=== PATIENT | male | born 1945 | race American Indian/Alaskan Native ===

== ENCOUNTER 2018-01-19 12:33 | Day surgery (SDC) | payer MEDICARE ==
[~2018-01-19 12:33] MED LIST: ANCEF/STERILE WATER 2 GM/20 ML IV NR
[2018-01-19] MEDS ORDERED: NACL 0.9% 1000 ML 1,000 ML IV SCH (14:00)
[2018-01-19] MEDS ORDERED: NACL 0.9% 1000 ML 0 ML ONE (14:01)
[2018-01-19] MEDS ORDERED: SUBLIMAZE ONE ×2 (14:10→15:52)
[2018-01-19] MEDS ORDERED: XYLOCAINE MPF 2% ONE (14:10)
[2018-01-19] MEDS ORDERED: ZOFRAN ONE (14:10)
[2018-01-19] MEDS ORDERED: DIPRIVAN 10 MG/ML IV ONE (14:10)
[2018-01-19] MEDS ORDERED: NACL 0.9% 1000 ML 1,000 ML ONE (14:28)
[2018-01-19 14:54] LABS: Basophils % (Auto) 1.3 % (0.0-1.8); Eosinophils # (Auto) 0.1 K/mm3 (0.0-0.4); Eosinophils % (Auto) 2.1 % (0.0-4.3); Hematocrit 40.4 % (35.5-45.6); Hemoglobin 13.2 gm/dl (11.8-15.2); Lymphocytes % (Auto) 34.9 % (13.4-35.0); Mean Corpuscular HGB Conc 33 % (32-34); Mean Corpuscular Hemoglobin 30 pg (28-32); Mean Corpuscular Volume 92 fl (84-94); Monocytes # (Auto) 0.4 K/mm3 (0.0-0.8); Monocytes % (Auto) 11.9 % (0.0-7.3); Platelet Count 196 K/mm3 (140-440); Red Blood Count 4.41 M/mm3 (3.65-5.03); Red Cell Distribution Width 14.3 % (13.2-15.2)
[2018-01-19 15:16] LABS: BUN/Creatinine Ratio 18; Blood Urea Nitrogen 16 mg/dL (9-20); Calcium 9.6 mg/dL (8.4-10.2); Hemolysis Index 4
[2018-01-19] MEDS ORDERED: ePHEDrine 50 MG/5 ML-0.9% NACL IV ONE (15:17)
[2018-01-19] MEDS ORDERED: NACL 0.9% IR ONE (15:35)
[2018-01-19] MEDS ORDERED: MARCAINE 0.5% INFILTRATI ONE (16:00)
[2018-01-19] MEDS ORDERED: MARCAINE 0.5% 30 ML INFILTRATI ONE (16:06)
--- NOTE | 2018-01-19 16:24 | Short Stay Summary ---
Short Stay Documentation Date of service: 01/19/18 - History H&P: obtained from office - Allergies and Medications Current Medications: Allergies No Known Allergies Allergy (Verified 10/24/14 15:43) Home Medications Medication Instructions Recorded Confirmed Last Taken Type Aspirin [Aspirin BABY CHEW TAB] 1 tab PO DAILY 10/24/14 01/19/18 01/17/18 09:00 History Losartan [Cozaar] 1 tab PO DAILY 10/24/14 01/19/18 01/18/18 09:00 History Metformin HCl [metFORMIN ER] 500 mg PO BID 10/24/14 01/19/18 01/18/18 20:00 History Tamsulosin [Flomax] 1 cap PO DAILY 10/24/14 01/19/18 01/18/18 09:00 History Repaglinide 0.5 mg PO PRN 09/10/17 09/10/17 01/19/18 08:30 History Carbidopa/Levodopa 25-100 [Sinemet 2.5 each PO Q8HR #30 tablet 09/13/1701/19/18 08:30 Rx 25/100] Diazepam [Valium] 5 mg PO DAILY PRN #10 tablet 09/13/17 01/19/18 Unknown Rx Active Medications Cefazolin Sodium (Ancef/Sterile Water 2 Gm/20 Ml) 2 gm IV PREOP NR Stop: 01/19/18 23:59 Sodium Chloride (Nacl 0.9% 1000 Ml) 1,000 mls @ 75 mls/hr IV DIRECT SHYANN Last Admin: 01/19/18 14:20 Dose: 75 mls/hr - Brief post op/procedure progress note Date of procedure: 01/19/18 Pre-op diagnosis: rt testes mass Post-op diagnosis: same Procedure: rt radical orchiectomy Anesthesia: SANTOA Surgeon: IAN MONGE Estimated blood loss: minimal Pathology: list (testes---rt) Specimen disposition: to lab Condition: stable - Hospital course Hospital course: donna on chart - Disposition Condition at discharge: Stable Disposition: DC-01 TO HOME OR SELFCARE Short Stay Discharge Plan Follow up with: ARLETTE KELLER MD [Primary Care Provider] - 7 Days
--- NOTE | 2018-01-19 16:41 | Operative Report ---
PREOPERATIVE DIAGNOSIS: Right testis mass. POSTOPERATIVE DIAGNOSIS: Right testis mass. PROCEDURE: Right radical orchiectomy. SURGEON: Flaquito Giraldo MD ANESTHESIA: General. ESTIMATED BLOOD LOSS: Minimal. FLUIDS: Crystalloid. COMPLICATIONS: No complications. INDICATIONS: This patient is a 72-year-old gentleman seen in the office with a large 10 cm right scrotal mass. Ultrasound suggested it was extratesticular, but it was hard to differentiate on exam. Tumor markers were drawn, but are pending. DESCRIPTION OF PROCEDURE: The patient was taken to the operative suite, placed in a supine position. After adequate general anesthesia. He was prepped and draped in a sterile fashion. Right inguinal incision was made with a Bovie. Sharp dissection was taken down to the external oblique fascia, which was opened. The ilioinguinal nerve could not be appreciated. The spermatic cord was identified, dissected to the internal ring. A Greenwood drain was used to secure the cord. Attempts to deliver the testicle out of the incision, which was unsuccessful. Therefore, I had to extend the incision slightly to allow removal. There is a large mass. Nabila was clamped at the internal ring. 0 silk suture ligature was used to tie it. Adequate hemostasis was achieved. No hernia defect could be appreciated. 2-0 Vicryl in a running fashion for the external oblique fascia, 2-0 Vicryl in a running fashion subcutaneous tissue, anya on the skin. 0.25% Marcaine was injected in the skin as well. A total of 20 mL. The patient tolerated the procedure well. Dressing was placed. He was extubated and taken to recovery room. He will go home on [facility]. JOB# [id number] [facility]
[2018-01-19 17:14] VITALS: BP 153/78
== END 2018-01-19 12:34 | disposition home or self-care (01) ==
LOC: OR 12:33
PROVIDERS: ATTEND Urology
DX: N44.2 Benign cyst of testis (principal); N45.2 Orchitis; N44.8 Other noninflammatory disorders of the testis; N40.0 Benign prostatic hyperplasia without lower urinary tract symptoms; Z79.82 Long term (current) use of aspirin; Z79.84 Long term (current) use of oral hypoglycemic drugs; Z98.890 Other specified postprocedural states
CPT/HCPCS: 36415; 54530; 80048; 82962; 85025; 88309; 88331; J0690; J2405; J2704; J3010; J7030

== ENCOUNTER 2018-11-18 13:12 | Outpatient (CLI) | payer MEDICARE | END 2018-11-18 13:13 | disposition home or self-care (01) | LOC: CARD 13:12 | PROVIDERS: ATTEND Internal Medicine | DX: R94.31 Abnormal electrocardiogram [ECG] [EKG] (principal); R07.9 Chest pain, unspecified; I10 Essential (primary) hypertension; E11.9 Type 2 diabetes mellitus without complications; E78.00 Pure hypercholesterolemia, unspecified | CPT/HCPCS: 93005; 93010 ==

== ENCOUNTER 2019-10-05 08:14 | Emergency (ER) | payer MEDICARE ==
[2019-10-05] MEDS ORDERED: TETANUS,DIPH,PERTUSS(ACELL) VACCINE 0.5 ML SYRINGE IM ONE (08:35)
--- NOTE | 2019-10-05 09:00 | Emergency Department Report ---
HPI - General Chief Complaint: Fall Time Seen by Provider: 10/05/19 08:29 - HPI HPI: Room 2 The patient is a 74-year-old male present with a chief complaint of fall. The patient states last night at approximately midnight he got entangled on something on the floor and fell to the ground. Patient states he struck his head on the floor but did not lose consciousness. Patient denies nausea vomiting or pain currently. Patient sustained laceration to his forehead and states he does not recall the last time he had a tetanus shot ED Past Medical Hx - Past Medical History Previous Medical History?: Yes Hx Hypertension: Yes Hx Diabetes: Yes Hx Asthma: No Hx HIV: No Additional medical history: Parkinson's Ds, Nystagmus, - Surgical History Past Surgical History?: Yes Additional Surgical History: Bilateral Hernia Repair, orchiectomy - Family History Family history: no significant - Social History Smoking Status: Never Smoker Substance Use Type: None - Medications Home Medications: Home Medications Medication Instructions Recorded Confirmed Last Taken Type Aspirin [Aspirin BABY CHEW TAB] 1 tab PO DAILY 10/24/14 09/18/18 09/17/18 History Losartan [Cozaar] 2 tab PO DAILY 10/24/14 09/18/18 09/17/18 History Metformin HCl [metFORMIN ER] 500 mg PO BID 10/24/14 09/18/18 09/17/18 History Tamsulosin [Flomax] 2 cap PO DAILY 10/24/14 09/18/18 09/17/18 History Repaglinide 0.5 mg PO PRN 09/10/17 09/18/18 01/19/18 08:30 History Carbidopa/Levodopa 25-100 [Sinemet 2.5 each PO Q8HR #30 tablet 09/13/17 09/18/18 1 Day Ago Rx 25/100] ~09/17/18 Diazepam [Valium] 5 mg PO DAILY PRN #10 tablet 09/13/17 09/18/18 Unknown Rx Methimazole 10 mg PO DAILY 09/18/18 09/18/18 09/17/18 History Mirtazapine 15 mg PO QHS 09/18/18 09/18/18 09/16/18 History Sinemet ER 50/200 1 mg PO QHS 09/18/18 09/18/18 09/17/18 History rOPINIRole 1 mg PO TID MDD 09/18/18 09/18/18 09/17/18 History Oxybutynin Xl [Ditropan Xl] 10 mg PO QDAY #60 tablet 09/20/18 Unknown Rx cephALEXin [Keflex] 500 mg PO Q8HR #21 cap 10/05/19 Unknown Rx traMADoL [Ultram] 50 mg PO Q6HR PRN #10 tablet 10/05/19 Unknown Rx ED Review of Systems ROS: Stated complaint: FALL/HEAD LACERATION Other details as noted in HPI Constitutional: no symptoms reported Eyes: denies: eye pain ENT: denies: throat pain Respiratory: no symptoms reported Cardiovascular: denies: chest pain Endocrine: no symptoms reported Gastrointestinal: denies: abdominal pain Genitourinary: denies: dysuria Musculoskeletal: denies: back pain Neurological: denies: headache Physical Exam - Physical Exam Vital Signs: Vital Signs 10/05/19 08:26 Temperature 97.8 F Pulse Rate 67 Respiratory 16 Rate Blood Pressure 163/65 [Left] O2 Sat by Pulse 100 Oximetry Physical Exam: GENERAL: The patient is well-developed well-nourished male lying on stretcher not appear to be in acute distress. [] HEENT: Normocephalic. 2 cm laceration to the mid forehead. Hemostatic. Extraocular motions are intact. Patient has moist mucous membranes. NECK: Supple. No meningitic signs are noted. There is no adenopathy noted. CHEST/LUNGS: There is no respiratory distress HEART/CARDIOVASCULAR: Regular. There is no tachycardia. There is no gallop rub or murmur. ABDOMEN: Abdomen is soft, nontender. Patient has normal bowel sounds. There is no abdominal distention. SKIN: There is no rash. There is no edema. There is no diaphoresis. NEURO: The patient is awake, alert, and oriented. The patient is cooperative. The patient has no focal neurologic deficits. The patient has normal speech. Cranial nerves II through XII grossly intact, no drift MUSCULOSKELETAL: There is no evidence of acute injury. ED Course Vital Signs 10/05/19 08:26 Temperature 97.8 F Pulse Rate 67 Respiratory 16 Rate Blood Pressure 163/65 [Left] O2 Sat by Pulse 100 Oximetry - Laceration /Wound Repair Head Wound Location: head Wound Length (cm): 3 Wound's Depth, Shape: linear Wound Explored: clean Betadine Prep?: Yes Anesthesia: Lidocaine w/ Epi Volume Anesthetic (ccs): 5 Wound Repaired With: sutures Suture Size/Type: 5:0, nylon Number of Sutures: 4 Layer Closure?: No Sterile Dressing Applied?: Yes ED Medical Decision Making - EKG Data -: EKG Interpreted by Me EKG shows normal: sinus rhythm Rate: normal - EKG Data When compared to previous EKG there are: previous EKG unavailable Interpretation: other (No ischemic changes seen) - Radiology Data Radiology results: report reviewed (CT head, CT facial bones, CT cervical spine), image reviewed (CT head, CT facial bones, CT cervical spine) [place] [id number] Cat Scan Report Signed Patient: PHOEBE DUGGAN MR# : [id number] : 1945 Acct:[id number] Age/Sex: 74 / M ADM Date: 10/05/19 Loc: ED Attending Dr: Ordering Physician: LEONARDO CARRERO MD Date of Service: 10/05/19 Procedure(s): CT head/brain wo con Accession Number(s): [id number] cc: LEONARDO CARRERO MD CT head without contrast HISTORY: Head injury after trip and fall. TECHNIQUE: Axial imaging performed from the skull apex through the skull base without the use of contrast. All CT scans at this location are performed using CT dose reduction for ALARA by means of automated exposure control. COMPARISON: None FINDINGS: Parenchyma: No acute intracranial hemorrhage or parenchymal abnormality. Ventricles: There is mild diffuse brain atrophy with commensurate ventricular enlargement which is likely age appropriate. Soft tissues: Small frontal scalp laceration with small hematoma. The orbits appear normal. Bones: No acute osseous abnormality. Sinuses: Sinuses and mastoid air cells are clear. IMPRESSION: Frontal scalp laceration with small hematoma. No acute intracranial abnormality. Signer Name: Jorgito Daigle MD Signed: 10/05/2019 9:46 AM Workstation Name: [id number] Transcribed By: EVE Dictated By: Jorgito Daigle MD Electronically Authenticated By: Jorgito Daigle MD Signed Date/Time: 10/05/19945 DD/ 9 TD/TT: [address] [address] Cat Scan Report Signed Patient: PHOEBE DUGGAN MR# : [id number] : 1945 Acct:[id number] Age/Sex: 74 / M ADM Date: 10/05/19 Loc: ED Attending Dr: Ordering Physician: LEONARDO CARRERO MD Date of Service: 10/05/19 Procedure(s): CT facial bones wo con Accession Number(s): [id number] cc: LEONARDO CARRERO MD CT maxillofacial without contrast INDICATION : Head injury after trip and fall. TECHNIQUE: Axial imaging performed through the face with reconstructed images also reviewed. All CT scans at this location are performed using CT dose reduction for ALARA by means of automated exp osure control. COMPARISON: CT head from today FINDINGS: There is a small midline frontal scalp laceration with small hematoma, all of which was better seen on the CT head from today. No acute fracture or malalignment identified. Mild mucosal thickening seen in the maxillary sinuses and several ethmoid air cells. Remaining sinuses and mastoid air cells are clear. Small dermal calcifications are seen over the cheeks. Orbits are normal. IMPRESSION: Small frontal scalp injury was better seen on the CT head from today. Otherwise unremarkable exam. Signer Name: Jorgito Daigle MD Signed: 10/05/2019 10:18 AM Workstation Name: [id number] Transcribed By: JW Dictated By: Jorgito Daigle MD Electronically Authenticated By: Jorgito Daigle MD Signed Date/Time: 10/05/19 1018 DD/ 1016 TD/TT: [address] [address] Cat Scan Report Signed Patient: PHOEBE DUGGAN MR# : [id number] : 1945 Acct:[id number] Age/Sex: 74 / M ADM Date: 10/05/19 Loc: ED Attending Dr: Ordering Physician: LEONARDO CARRERO MD Date of Service: 10/05/19 Procedure(s): CT cervical spine wo con Accession Number(s): [id number] cc: LEONARDO CARRERO MD CT cervical spine spine without contrast INDICATION: Head injury after trip and fall. TECHNIQUE: Axial imaging performed through the cervical spine without the use of contrast. Sagittal and coronal reconstructed images were also reviewed. All CT scans at this location are p erformed using CT dose reduction for ALARA by means of automated exposure control. COMPARISON: None FINDINGS: Alignment: Spinal alignment is normal. Bones: There is no acute osseous abnormality. Moderate multilevel discogenic DJD is present. Soft tissues: No acute or significant incidental soft tissue abnormality. IMPRESSION: No acute abnormality. Signer Name: Jorgito Daigle MD Signed: 10/05/2019 9:48 AM Workstation Name: [id number] Transcribed By: JW Dictated By: Jorgito Daigle MD Electronically Authenticated By: Jorgito Daigle MD Signed Date/Time: 10/05/19947 DD/ 5 TD/TT: - Differential Diagnosis Closed head injury, intracranial hemorrhage, Critical care attestation.: If time is entered above; I have spent that time in minutes in the direct care of this critically ill patient, excluding procedure time. ED Disposition Clinical Impression: Closed head injury, Forehead laceration Disposition: DC-01 TO HOME OR SELFCARE Is pt being admited?: No Does the pt Need Aspirin: No Condition: Stable Instructions: Minor Head Injury (ED), Suture Care (ED), Laceration (ED) Additional Instructions: Your sutures need to be removed in 3-5 days. Return to the emergency department should you develop worsening symptoms, inability to tolerate food or liquids, high fever or any other concerns Prescriptions: cephALEXin [Keflex] 500 mg PO Q8HR #21 cap traMADoL [Ultram] 50 mg PO Q6HR PRN #10 tablet PRN Reason: Pain Referrals: PRIMARY CARE, [Primary Care Provider] - 3-5 Days Time of Disposition: 11:19
--- NOTE | 2019-10-05 09:50 | Cat Scan Report ---
CT head without contrast HISTORY: Head injury after trip and fall. TECHNIQUE: Axial imaging performed from the skull apex through the skull base without the use of con trast. All CT scans at this location are performed using CT dose reduction for ALARA by means of aut omated exposure control. COMPARISON: None FINDINGS: Parenchyma: No acute intracranial hemorrhage or parenchymal abnormality. Ventricles: There is mild diffuse brain atrophy with commensurate ventricular enlargement which is l ikely age appropriate. Soft tissues: Small frontal scalp laceration with small hematoma. The orbits appear normal. Bones: No acute osseous abnormality. Sinuses: Sinuses and mastoid air cells are clear. IMPRESSION: Frontal scalp laceration with small hematoma. No acute intracranial abnormality. Signer Name: Jorgito Daigle MD Signed: 10/05/2019 9:46 AM Workstation Name: [id number]
--- NOTE | 2019-10-05 09:52 | Cat Scan Report ---
CT cervical spine spine without contrast INDICATION: Head injury after trip and fall. TECHNIQUE: Axial imaging performed through the cervical spine without the use of contrast. Sagittal and coronal reconstructed images were also reviewed. All CT scans at this location are performed us ing CT dose reduction for ALARA by means of automated exposure control. COMPARISON: None FINDINGS: Alignment: Spinal alignment is normal. Bones: There is no acute osseous abnormality. Moderate multilevel discogenic DJD is present. Soft tissues: No acute or significant incidental soft tissue abnormality. IMPRESSION: No acute abnormality. Signer Name: Jorgito Daigle MD Signed: 10/05/2019 9:48 AM Workstation Name: [id number]
--- NOTE | 2019-10-05 10:23 | Cat Scan Report ---
CT maxillofacial without contrast INDICATION : Head injury after trip and fall. TECHNIQUE: Axial imaging performed through the face with reconstructed images also reviewed. All CT scans at this location are performed using CT dose reduction for ALARA by means of automated exposur e control. COMPARISON: CT head from today FINDINGS: There is a small midline frontal scalp laceration with small hematoma, all of which was be tter seen on the CT head from today. No acute fracture or malalignment identified. Mild mucosal thick ening seen in the maxillary sinuses and several ethmoid air cells. Remaining sinuses and mastoid air cells are clear. Small dermal calcifications are seen over the cheeks. Orbits are normal. IMPRESSION: Small frontal scalp injury was better seen on the CT head from today. Otherwise unremarka ble exam. Signer Name: Jorgito Daigle MD Signed: 10/05/2019 10:18 AM Workstation Name: [id number]
[2019-10-05] MEDS ORDERED: LIDOCAINE 1%/EPINEPHRINE 1:100,000 VIAL (20 ML) INFILTRATI ONE (10:31)
[2019-10-05] MEDS ORDERED: SODIUM CHLORIDE 0.9% IRR 500 ML BOTTLE IR ONE (10:32)
[2019-10-05] MEDS ORDERED: BACITRACIN/POLYMYXIN B OINT 28.35 GM TP ONE (11:18)
[2019-10-05 11:48] VITALS: BP 108/63
== END 2019-10-05 12:02 | disposition home or self-care (01) ==
LOC: ED 08:14
DX: S01.91XA Laceration without foreign body of unspecified part of head, initial encounter (principal); S09.90XA Unspecified injury of head, initial encounter; I10 Essential (primary) hypertension; E11.9 Type 2 diabetes mellitus without complications; Z98.890 Other specified postprocedural states; Z79.899 Other long term (current) drug therapy; W18.39XA Other fall on same level, initial encounter; Y93.89 Activity, other specified; Y92.89 Other specified places as the place of occurrence of the external cause; Y99.8 Other external cause status
CPT/HCPCS: 70450; 70486; 72125; 90471; 90715; 93005; 93010

== ENCOUNTER 2019-10-13 13:21 | Emergency (ER) | payer MEDICARE ==
--- NOTE | 2019-10-13 13:38 | Emergency Department Report ---
Suture/Staple Removal - HPI Chief Complaint: Laceration/Recheck/Suture Stated Complaint: REMOVAL OF STICHES Time Seen by Provider: 10/13/19 13:28 When Sutures or Dixon Placed: 8-10 Days Ago Wound Location: forehead ED Review of Systems ROS: Stated complaint: REMOVAL OF STICHES Other details as noted in HPI Constitutional: denies: chills, fever Respiratory: denies: cough, shortness of breath, wheezing Cardiovascular: denies: chest pain, palpitations Gastrointestinal: denies: abdominal pain, nausea, diarrhea Skin: lesions (sutures to forehead). denies: rash Neurological: denies: headache, weakness, paresthesias Psychiatric: denies: anxiety, depression ED Past Medical Hx - Past Medical History Hx Hypertension: Yes Hx Diabetes: Yes Hx Asthma: No Hx HIV: No Additional medical history: Parkinson's Ds, Nystagmus, - Surgical History Additional Surgical History: Bilateral Hernia Repair, orchiectomy - Social History Smoking Status: Never Smoker Substance Use Type: None - Medications Home Medications: Home Medications Medication Instructions Recorded Confirmed Last Taken Type Aspirin [Aspirin BABY CHEW TAB] 1 tab PO DAILY 10/24/14 09/18/18 09/17/18 History Losartan [Cozaar] 2 tab PO DAILY 10/24/14 09/18/18 09/17/18 History Metformin HCl [metFORMIN ER] 500 mg PO BID 10/24/14 09/18/18 09/17/18 History Tamsulosin [Flomax] 2 cap PO DAILY 10/24/14 09/18/18 09/17/18 History Repaglinide 0.5 mg PO PRN 09/10/17 09/18/18 01/19/18 08:30 History Carbidopa/Levodopa 25-100 [Sinemet 2.5 each PO Q8HR #30 tablet 09/13/17 09/18/18 1 Day Ago Rx 25/100] ~09/17/18 Diazepam [Valium] 5 mg PO DAILY PRN #10 tablet 09/13/17 09/18/18 Unknown Rx Methimazole 10 mg PO DAILY 09/18/18 09/18/18 09/17/18 History Mirtazapine 15 mg PO QHS 09/18/18 09/18/18 09/16/18 History Sinemet ER 50/200 1 mg PO QHS 02/05/2709/18/18 09/17/18 History rOPINIRole 1 mg PO TID MDD 11/2 09/18/18 09/18/18 09/17/18 History Oxybutynin Xl [Ditropan Xl] 10 mg PO QDAY #60 tablet 09/20/18 Unknown Rx cephALEXin [Keflex] 500 mg PO Q8HR #21 cap 10/05/19 Unknown Rx traMADoL [Ultram] 50 mg PO Q6HR PRN #10 tablet 10/05/19 Unknown Rx Suture Removal Exam - Exam General: Vital signs noted. No distress. Alert and acting appropriately. Wound: No Pathologic Erythema, No Tenderness, No Drainage, No Pus, No Wound Dehiscence Other Systems: All other systems reviewed and are unremarkable. ED Recheck MDM - Differential Diagnosis Suture/Staple Removal - Medical Decision Making This is a 74 y.o. M. that presents to the ER for suture removal from forehead. Sutures placed 8 days ago in ER s/p fall. Patient denies new symptoms such as pain, discharge, swelling, or erythema around wound. Sutures removed with wire forceps and scissors. Patient tolerated well. Wound show no signs of infection, drainage, erythema, or swelling. Advised to apply vitamin E or mederma for scaring. Follow up with PCP. Patient discharged home stable and given strict return instructions. Critical care attestation.: If time is entered above; I have spent that time in minutes in the direct care of this critically ill patient, excluding procedure time. ED Disposition Clinical Impression: Encounter for removal of sutures Disposition: DC- TO HOME OR SELFCARE Is pt being admited?: No Condition: Stable Instructions: Acute Wound Care (ED) Referrals: ARLETTE KELLER MD [Staff Physician] - 3-5 Days Time of Disposition: 13:39
[2019-10-13 13:42] VITALS: BP 95/40
== END 2019-10-13 13:50 | disposition home or self-care (01) ==
LOC: ED 13:21
DX: T14.8XXD Other injury of unspecified body region, subsequent encounter (principal); Z48.02 Encounter for removal of sutures